=== PATIENT | male | born 2000 | race African-American/Black ===

== ENCOUNTER 2022-01-05 02:09 | Inpatient (IN) | payer MEDICAID, OTHER ==
[~2022-01-05] VITALS: Ht 177.8 cm; Wt 88.5 kg
[2022-01-05] MEDS ORDERED: METHYLPREDNISOLONE SOD SUCC 125 MG/2 ML VIAL IV STA (02:14)
[2022-01-05] MEDS ORDERED: IPRATROPIUM BROMIDE (0.02%) 0.5MG/2.5ML NEB HHN STA (02:14)
[2022-01-05] MEDS ORDERED: MAGNESIUM 2 G PREMIX 50 ML IV ONE (02:15)
[2022-01-05] MEDS ORDERED: SODIUM CHLORIDE 0.9% 1,000 ML IV ONE (02:15)
[2022-01-05] MEDS ORDERED: ALBUTEROL (0.083%) 2.5MG/3ML NEB HHN SCH (02:30)
[2022-01-05 03:05] LABS: BASOPHILS % 0.4 % (0.0-2.0); EOSINOPHILS % 5.6 % (0.0-5.0); HEMATOCRIT. 44.8 % (42.0-52.0); HEMOGLOBIN. 15.1 g/dL (14.0-18.0); LYMPHOCYTES % 21.7 % (20.0-50.0); MEAN CORPUSCULAR HEMOGLOBIN 28.7 pg (28.0-32.0); MEAN CORPUSCULAR VOLUME 85.1 fL (80.0-94.0); MEAN PLATELET VOLUME 9.5 fl (7.4-10.4); MONOCYTES % 6.4 % (2.0-8.0); NEUTROPHILS % 65.9 % (40.0-76.0); PLATELET 265 x1000/uL (130-400); RED BLOOD CELL COUNT 5.26 mill/uL (4.7-6.1); RED CELL DISTRIBUTION WIDTH 14.5 % (11.6-14.6)
[2022-01-05 03:14] LABS: CHLORIDE 107 mEq/L (98-107)
[2022-01-05 03:49] LABS: BG BASE EXCESS -2.3 mmol/L (-2.0-2.0); BG CARBOXYHEMOGLOBIN 0.7 % (0.5-1.5); BG DEOXYHEMOGLOBIN 0.2 % (0.0-5.0); BG FRACTION INSPIRED OXYGEN 80; BG HCO3 ACT 24.1 mmol/L (22.0-26.0); BG METHEMOGLOBIN 0.9 % (0.0-1.5); BG OXYGEN SATURATION 99.8 % (92.0-98.5); BG OXYHEMOGLOBIN 98.2 % (94.0-97.0); BG PCO2 47.4 mmHg (35.0-45.0); BG PH 7.325 (7.350-7.450); BG PO2 367.9 mmHg (75.0-100.0); BG SAMPLE SITE RIGHT RADIAL; BG TOTAL HEMOGLOBIN 16.3 g/dL (12.0-18.0); BG VENT MODE MASK - CPAP
[2022-01-05] MEDS ORDERED: ONDANSETRON HCL 4MG/2ML INJ IV PRN (08:15)
[2022-01-05] MEDS ORDERED: ACETAMINOPHEN 325MG TABLET PO PRN (08:15)
[2022-01-05] MEDS ORDERED: METHYLPREDNISOLONE SOD SUCC 40 MG/ML VIAL IV SCH (08:30)
[2022-01-05] MEDS ORDERED: GUAIFENESIN-DM 200MG-20MG/10ML UDC PO PRN (09:45)
[2022-01-05 11:19] VITALS: BP 103/69
[2022-01-05 12:00] VITALS: BP 137/94
[2022-01-05] MEDS ORDERED: FLUTICASONE PROPIONATE 50MCG/SPRAY BOTTLE BOTHNSTRLS SCH (12:00)
[2022-01-05] MEDS ORDERED: IPRATROPIUM/ALBUTEROL 0.5-3(2.5)MG/3ML NEB HHN SCH (12:00)
[2022-01-05 15:33] VITALS: BP 109/65
[2022-01-05] MEDS ORDERED: MONTELUKAST SODIUM 10MG TABLET PO SCH (17:00)
== END 2022-01-05 16:16 | disposition home or self-care (01) | DRG 141 ==
LOC: EDBD 02:09 → ER 02:09 → MICUSO 03:01 → EDBEDREQ 03:04 → EDBEDREQTM 03:04 → EDBEDREQSVC 03:04 → 5EST 10:41
PROVIDERS: ADMIT Internal Medicine; ATTEND Internal Medicine
PROC: 5A09357 Assistance with Respiratory Ventilation, Less than 24 Consecutive Hours, Continuous Positive Airway Pressure (ICD-10-PCS; principal; 2022-01-05)
DX: J45.901 Unspecified asthma with (acute) exacerbation (principal); J96.00 Acute respiratory failure, unspecified whether with hypoxia or hypercapnia; R65.11 Systemic inflammatory response syndrome (SIRS) of non-infectious origin with acute organ dysfunction; D72.10 Eosinophilia, unspecified; J31.0 Chronic rhinitis; E66.9 Obesity, unspecified; Z20.822 Contact with and (suspected) exposure to COVID-19; Z68.28 Body mass index [BMI] 28.0-28.9, adult
CPT/HCPCS: 36415; 36600; 71045; 80053; 82375; 82805; 83605; 83880; 84484; 85025; 85379; 87426; 93005; 94640; 94660; 99291; J2920; J2930; J3475; J7030